=== PATIENT | female | born 2000 | race Caucasian/White ===

== ENCOUNTER → 2020-10-13 | Outpatient (REF) | LOC: M LABSMTC 12:13 | PROVIDERS: ATTEND Pediatrics | DX: Z11.52 Encounter for screening for COVID-19 (principal) ==

== ENCOUNTER → 2021-04-07 | Outpatient (REF) | LOC: M LABSMTC 12:03 | PROVIDERS: ATTEND Pediatrics | DX: Z11.52 Encounter for screening for COVID-19 (principal) ==

== ENCOUNTER → 2021-04-26 | Outpatient (REF) | payer BC ==
[2021-04-26 22:48] LABS: RSV AMPLIFICATION NEGATIVE (NEGATIVE)
== END ==
LOC: M LAB 19:15
PROVIDERS: ATTEND Family Medicine
DX: Z11.52 Encounter for screening for COVID-19 (principal)

== ENCOUNTER → 2021-06-03 | Outpatient (CLI) | payer BC ==
[2021-06-03 19:44] LABS: BASO # 0.1 10^3/uL (0.0-0.2); BASO % 0.4 % (0.0-1.0); EOS # 0.1 10^3/uL (0.0-0.5); HEMATOCRIT 40.8 % (36.0-47.0); HEMOGLOBIN 14.5 g/dl (12.0-15.5); LYMPH # 3.2 10^3/uL (1.5-5.0); LYMPH % 28.7 % (24.0-44.0); MEAN CORPUSCULAR HEMOGLOBIN 30.6 pg (27.0-33.0); MEAN CORPUSCULAR HGB CONC 35.5 g/dl (32.0-36.5); MEAN CORPUSCULAR VOLUME 86.1 fl (80.0-96.0); MONO # 0.9 10^3/uL (0.0-0.8); MONO % 8.1 % (2.0-8.0); NEUTROPHILS # 6.9 10^3/uL (1.5-8.5); NEUTROPHILS % 61.6 % (36.0-66.0); PLATELET COUNT, AUTOMATED 388 10^3/uL (150-450); RED BLOOD COUNT 4.74 10^6/uL (4.00-5.40); WHITE BLOOD COUNT 11.2 10^3/uL (4.0-10.0)
[2021-06-03 20:12] LABS: HCG, SERUM QUALITATIVE NEGATIVE (NEGATIVE)
[2021-06-03 20:21] LABS: ALBUMIN 3.9 GM/DL (3.2-5.2); ALT/SGPT 18 U/L (12-78); BILIRUBIN,TOTAL 0.6 MG/DL (0.2-1.0); BLOOD UREA NITROGEN 8 MG/DL (7-18); CALCIUM LEVEL 9.1 MG/DL (8.5-10.1); CARBON DIOXIDE LEVEL 27 MEQ/L (21-32); CHLORIDE LEVEL 108 MEQ/L (98-107); CHOLESTEROL LEVEL 165 MG/DL (<200); CHOLESTEROL RISK RATIO 2.229 (<5); CREATININE FOR GFR 0.88 MG/DL (0.55-1.30); GLUCOSE, FASTING 87 MG/DL (70-100); HDL CHOLESTEROL 74 MG/DL (>40); LDL CHOLESTEROL 77 MG/DL (<100); NON-HDL-C 91 MG/DL; POTASSIUM SERUM 3.9 MEQ/L (3.5-5.1); SODIUM LEVEL 141 MEQ/L (136-145); TOTAL PROTEIN 7.1 GM/DL (6.4-8.2); TRIGLYCERIDES LEVEL 69 MG/DL (<150)
[2021-06-05 10:55] LABS: FOLLICLE STIMULATING HORMONE 1.6 mIU/mL; LUTEINIZING HORMONE 1.8 mIU/mL
[2021-06-06 10:08] LABS: TESTOSTERONE FREE (DIRECT) 5.9 pg/mL (0.0-4.2)
== END ==
LOC: M LAB 19:14
PROVIDERS: ATTEND Family Medicine
DX: N91.2 Amenorrhea, unspecified (principal)

== ENCOUNTER → 2021-06-30 | Outpatient (REF) | LOC: M LABSMTC 09:59 | PROVIDERS: ATTEND Family Medicine | DX: Z20.822 Contact with and (suspected) exposure to COVID-19 (principal) ==

== ENCOUNTER → 2021-07-04 | Outpatient (REF) | LOC: M LABSMTC 13:03 | PROVIDERS: ATTEND Family Medicine | DX: Z11.52 Encounter for screening for COVID-19 (principal) ==

== ENCOUNTER → 2022-07-04 | Outpatient (CLI) | payer BC ==
[2022-07-04 18:44] LABS: GC DNA AMPLIFICATION NEGATIVE (NEGATIVE)
== END ==
LOC: M WUC 14:31
PROVIDERS: ATTEND Physician Assistant
DX: R30.0 Dysuria (principal); R10.30 Lower abdominal pain, unspecified; S39.012A Strain of muscle, fascia and tendon of lower back, initial encounter; X58.XXXA Exposure to other specified factors, initial encounter; Y92.89 Other specified places as the place of occurrence of the external cause

== ENCOUNTER 2022-12-09 00:58 | Emergency (ER) | payer BC, OTHER ==
[~2022-12-09] VITALS: Ht 160 cm; Wt 72.5 kg
[2022-12-09 00:58] VITALS: BP 123/86; TEMP 97.8; O2SAT 98
[2022-12-09] MEDS ORDERED: LEVO1TAB40 PO (04:48)
[2022-12-09] MEDS ORDERED: LevoFLOXacin 750 MG TABLET PO ONE (04:50)
== END 2022-12-09 05:05 | disposition home or self-care (01) ==
LOC: M ED 00:58
DX: S61.002A Unspecified open wound of left thumb without damage to nail, initial encounter (principal); W55.01XA Bitten by cat, initial encounter; Y92.009 Unspecified place in unspecified non-institutional (private) residence as the place of occurrence of the external cause; Y93.89 Activity, other specified; Y99.8 Other external cause status; Z88.0 Allergy status to penicillin

== ENCOUNTER → 2023-01-07 | Outpatient (CLI) | payer BC ==
[~2023-01-07] MED LIST: LEVO1TAB40 PO
[2023-01-07 05:53] LABS: HEMATOCRIT 40.8 % (36.0-47.0); HEMOGLOBIN 13.9 g/dl (12.0-15.5); MEAN CORPUSCULAR HGB CONC 34.1 g/dl (32.0-36.5); MEAN CORPUSCULAR VOLUME 87.9 fl (80.0-96.0); PLATELET COUNT, AUTOMATED 388 10^3/uL (150-450); RED BLOOD COUNT 4.64 10^6/uL (4.00-5.40); WHITE BLOOD COUNT 10.9 10^3/uL (4.0-10.0)
[2023-01-07 05:55] LABS: BLOOD UREA NITROGEN 12 MG/DL (9-23); CALCIUM LEVEL 9.2 MG/DL (8.5-10.1); CARBON DIOXIDE LEVEL 29 MMOL/L (20-31); CHLORIDE LEVEL 106 MMOL/L (98-107); CREATININE FOR GFR 0.81 MG/DL (0.55-1.30); GLOMERULAR FILTRATION RATE > 60.0 (>60); GLUCOSE, FASTING 92 MG/DL (60-100); POTASSIUM SERUM 4.3 MMOL/L (3.5-5.1); SODIUM LEVEL 141 MMOL/L (136-145)
== END ==
LOC: M LAB 05:34
PROVIDERS: ATTEND Plastic Surgery Surgery of the Hand
DX: N62 Hypertrophy of breast (principal)

== ENCOUNTER 2023-01-18 05:59 | Observation (INO) | payer BC ==
[~2023-01-18] VITALS: Ht 160 cm; Wt 70.5 kg
[2023-01-18] MEDS ORDERED: LR 1,000 ML IV SCH ×2 (06:50→11:25)
[2023-01-18] MEDS ORDERED: SUGAMMADEX SODIUM 500 MG/5 ML VIAL (BRIDION) As Ordered ONE (07:07)
[2023-01-18] MEDS ORDERED: fentaNYL 100 MCG/2 ML INJECTION As Ordered ONE (07:07)
[2023-01-18] MEDS ORDERED: ONDANSETRON 4MG 2ML VIAL As Ordered ONE (07:07)
[2023-01-18] MEDS ORDERED: MIDAZOLAM INJ 2MG/2ML VIAL As Ordered ONE (07:07)
[2023-01-18] MEDS ORDERED: propofoL 200 MG/20 ML VIAL As Ordered ONE (07:07)
[2023-01-18] MEDS ORDERED: HYDROmorphone HCL 2MG/ML 1ML VIAL As Ordered ONE (07:07)
[2023-01-18] MEDS ORDERED: ROCURONIUM BROMIDE 50MG/5ML VIAL As Ordered ONE ×2 (07:07→09:57)
[2023-01-18] MEDS ORDERED: LIDOCAINE 2% 100MG/5ML SDV (FOR ANES.) As Ordered ONE (07:07)
[2023-01-18] MEDS ORDERED: ACETAMINOPHEN 1000MG 100ML IV BAG As Ordered ONE (07:08)
[2023-01-18] MEDS ORDERED: GENTAMICIN SULF 80MG/2ML VIAL As Ordered ONE (07:11)
[2023-01-18] MEDS ORDERED: CLINDAMYCIN 900 MG in IV 1 EA IV ONE (07:50)
[2023-01-18] MEDS ORDERED: CLINDAMYCIN 900MG/6ML VIAL As Ordered ONE (08:04)
[2023-01-18] MEDS ORDERED: HYDROMORPHONE HCL 0.5 MG/ 0.5 ML SYRINGE IV PRN (11:25)
[2023-01-18] MEDS ORDERED: ONDANSETRON 4MG 2ML VIAL IV PRN ×2 (11:25→11:40)
[2023-01-18] MEDS ORDERED: oxyCODONE 5MG TAB PO PRN (11:25)
[2023-01-18] MEDS ORDERED: fentaNYL 100 MCG/2 ML INJECTION IV PRN (11:25)
[2023-01-18] MEDS ORDERED: PROMETHAZINE 25MG/ML 1ML VIAL IV PRN (13:10)
[2023-01-18] MEDS: traMADol 50 MG TAB PO PRN (15:07)
[2023-01-18 15:09] VITALS: BP 116/81; TEMP 98.2; O2SAT 99
[2023-01-18 15:41] VITALS: BP 115/75; TEMP 98.2; O2SAT 97
[2023-01-18] MEDS: LR 1,000 ML IV SCH (15:45)
[2023-01-18] MEDS: PERCOCET 5MG/325MG TAB PO PRN ×2 (15:51→20:07)
[2023-01-18 16:27] VITALS: BP 109/68; TEMP 98.4; O2SAT 97
[2023-01-18] MEDS: ACETAMINOPHEN TAB 650MG DOSE (2X325MG) PO PRN ×2 (17:38→22:17)
[2023-01-18 21:37] VITALS: BP 97/65; TEMP 98.8; O2SAT 97
[2023-01-19] MEDS: LR 1,000 ML IV SCH (02:00)
[2023-01-19] MEDS: traMADol 50 MG TAB PO PRN (03:05)
[2023-01-19 06:00] VITALS: BP 119/75; TEMP 98.1; O2SAT 99
[2023-01-19] MEDS: ACETAMINOPHEN TAB 650MG DOSE (2X325MG) PO PRN (06:02)
[2023-01-19] MEDS: PERCOCET 5MG/325MG TAB PO PRN ×2 (07:41→12:05)
[2023-01-19] MEDS ORDERED: PERCOCET PO (10:21)
[2023-01-19 10:29] VITALS: BP 103/71; TEMP 98.1; O2SAT 98
== END 2023-01-19 12:25 | disposition home or self-care (01) ==
LOC: M SDC 05:59 → M ED INP 06:00 → M MS5PR 14:25
PROVIDERS: ADMIT Plastic Surgery Surgery of the Hand; ATTEND Plastic Surgery Surgery of the Hand
DX: N62 Hypertrophy of breast (principal); M54.6 Pain in thoracic spine; M54.2 Cervicalgia; F17.290 Nicotine dependence, other tobacco product, uncomplicated; Z88.0 Allergy status to penicillin
CPT/HCPCS: 19318; 81025; 87635; 88305; C9290; J0131; J0665; J0736; J1100; J1170; J1580; J2250; J2405; J2550; J3010

== ENCOUNTER 2023-03-16 22:14 | Emergency (ER) | payer BC ==
[~2023-03-16] VITALS: Ht 160 cm; Wt 75.0 kg
[~2023-03-16 22:14] MED LIST changes: +PERCOCET PO
[2023-03-16 22:20] VITALS: TEMP 98.2; O2SAT 98
[2023-03-16] MEDS ORDERED: NS 1,000 ML IV ONE (22:55)
[2023-03-16] MEDS ORDERED: MECLIZINE 25 MG TABLET PO ONE (23:10)
[2023-03-16] MEDS ORDERED: METOCLOPRAMIDE INJ 10MG/2ML VIAL IV ONE (23:10)
[2023-03-16 23:18] LABS: BASO # 0.1 10^3/uL (0.0-0.2); BASO % 0.7 % (0.0-1.0); EOS # 0.2 10^3/uL (0.0-0.5); EOS % 1.9 % (0.0-3.0); HEMATOCRIT 39.6 % (36.0-47.0); HEMOGLOBIN 14.2 g/dl (12.0-15.5); LYMPH # 4.8 10^3/uL (1.5-5.0); LYMPH % 45.4 % (24.0-44.0); MEAN CORPUSCULAR HEMOGLOBIN 30.4 pg (27.0-33.0); MEAN CORPUSCULAR HGB CONC 35.9 g/dl (32.0-36.5); MEAN CORPUSCULAR VOLUME 84.8 fl (80.0-96.0); MONO # 0.8 10^3/uL (0.0-0.8); MONO % 7.7 % (2.0-8.0); NEUTROPHILS # 4.7 10^3/uL (1.5-8.5); PLATELET COUNT, AUTOMATED 376 10^3/uL (150-450); RED BLOOD COUNT 4.67 10^6/uL (4.00-5.40); WHITE BLOOD COUNT 10.7 10^3/uL (4.0-10.0)
[2023-03-16] MEDS ORDERED: ISOVUE-370 76% 100ML VIAL As Ordered ONE (23:23)
[2023-03-17 00:43] VITALS: BP 120/76; O2SAT 99
[2023-03-17] MEDS ORDERED: MECL-86 PO (00:47)
[2023-03-17] MEDS ORDERED: REGL10TA6 PO (00:47)
== END 2023-03-17 00:54 | disposition home or self-care (01) ==
LOC: M ED 22:14
DX: R42 Dizziness and giddiness (principal); F60.3 Borderline personality disorder; F43.10 Post-traumatic stress disorder, unspecified; F12.90 Cannabis use, unspecified, uncomplicated; Z88.0 Allergy status to penicillin; Z88.1 Allergy status to other antibiotic agents
CPT/HCPCS: 70450; 70496; 70498; 80047; 84702; 85025; 93005; 93041; 96374; 99284; J2765; Q9967

== ENCOUNTER → 2023-05-09 | Outpatient (CLI) | payer BC ==
[~2023-05-09] MED LIST changes: +MECL-86 PO; +REGL10TA6 PO
== END ==
LOC: M WHC 13:30
PROVIDERS: ATTEND Physician Assistant
DX: E28.2 Polycystic ovarian syndrome (principal)

== ENCOUNTER 2023-11-23 19:07 | Emergency (ER) | payer BC ==
[~2023-11-23] VITALS: Ht 160 cm; Wt 59.1 kg
[2023-11-23 19:07] VITALS: TEMP 98.9
[2023-11-23] MEDS: ONDANSETRON 4MG 2ML VIAL IV ONE (19:49)
[2023-11-23 19:52] LABS: BASO # 0.1 10^3/uL (0.0-0.2); BASO % 0.4 % (0.0-1.0); EOS % 0.1 % (0.0-3.0); HEMATOCRIT 41.2 % (36.0-47.0); HEMOGLOBIN 14.5 g/dl (12.0-15.5); LYMPH # 1.7 10^3/uL (1.5-5.0); LYMPH % 13.5 % (24.0-44.0); MEAN CORPUSCULAR HEMOGLOBIN 30.8 pg (27.0-33.0); MEAN CORPUSCULAR HGB CONC 35.2 g/dl (32.0-36.5); MEAN CORPUSCULAR VOLUME 87.5 fl (80.0-96.0); MONO # 0.8 10^3/uL (0.0-0.8); MONO % 6.3 % (2.0-8.0); NEUTROPHILS # 10.1 10^3/uL (1.5-8.5); NEUTROPHILS % 79.5 % (36.0-66.0); PLATELET COUNT, AUTOMATED 355 10^3/uL (150-450); RED BLOOD COUNT 4.71 10^6/uL (4.00-5.40); WHITE BLOOD COUNT 12.8 10^3/uL (4.0-10.0)
[2023-11-23] MEDS: KETOROLAC 30 MG/ML 1ML VIAL IV ONE (19:52)
[2023-11-23] MEDS: NS 1,000 ML IV ONE (19:52)
[2023-11-23 20:17] LABS: LIPASE 29 U/L (12-53)
[2023-11-23 20:18] LABS: HCG, SERUM QUALITATIVE NEGATIVE (NEGATIVE); MONO REFLEX EBV COMP NEGATIVE (NEGATIVE)
[2023-11-23 20:19] LABS: ALBUMIN 3.9 G/DL (3.2-5.2); ALKALINE PHOSPHATASE 52 U/L (46-116); ALT/SGPT 14 U/L (7.0-40); AST/SGOT 13 U/L (<34); BILIRUBIN,DIRECT 0.2 MG/DL (<0.4); BILIRUBIN,TOTAL 0.6 MG/DL (0.3-1.2); TOTAL PROTEIN 6.6 G/DL (5.7-8.2)
[2023-11-23 21:27] VITALS: BP 157/71; O2SAT 99
[2023-11-23] MEDS: CEPHALEXIN 500 MG CAP PO ONE (22:14)
[2023-11-23] MEDS ORDERED: CEPH500C PO (22:15)
[2023-11-23] MEDS ORDERED: ONDA-282 PO (22:15)
[2023-11-26 14:12] LABS: EBV AB TO NUCLEAR ANTIGEN > 600.00 U/mL (<18.00); EBV VIRAL CAPSID AG IGM < 36.00 U/mL (<36.00)
== END 2023-11-23 22:18 | disposition home or self-care (01) ==
LOC: M ED 19:07
DX: J03.80 Acute tonsillitis due to other specified organisms (principal); R16.1 Splenomegaly, not elsewhere classified; F43.10 Post-traumatic stress disorder, unspecified; Z88.1 Allergy status to other antibiotic agents; Z88.8 Allergy status to other drugs, medicaments and biological substances; Z79.2 Long term (current) use of antibiotics; Z79.899 Other long term (current) drug therapy
CPT/HCPCS: 76705; 80047; 80076; 81001; 83690; 84702; 84703; 85025; 86140; 86308; 86664; 86665; 87880; 96361; 96374; 96375; 99284; J1885; J2405

== ENCOUNTER → 2023-12-10 | Outpatient (CLI) | payer BC ==
[~2023-12-10] MED LIST changes: +CEPH500C PO; +ONDA-282 PO
[2023-12-10 11:03] LABS: FREE T4 0.97 NG/DL (0.89-1.76); THYROID STIMULATING HORMONE 1.138 uIU/ML (0.55-4.78)
[2023-12-10 11:04] LABS: FOLLICLE STIMULATING HORMONE 9.3 mIU/ML; LUTEINIZING HORMONE 15.5 mIU/ML; PERCENT SATURATION 39.2 % (13.2-45.0)
== END ==
LOC: M LAB 09:32
PROVIDERS: ATTEND Nurse Practitioner Adult Health
DX: N92.6 Irregular menstruation, unspecified (principal)